=== PATIENT | male | born 2000 | race Two or more races ===

== ENCOUNTER 2020-10-19 22:49 | Emergency (ER) | payer SELFPAY ==
[~2020-10-19] VITALS: Ht 167.6 cm; Wt 75.0 kg
[2020-10-19] MEDS ORDERED: ONDANSETRON HCL 4MG/2ML INJ IV STA (22:52)
[2020-10-19] MEDS ORDERED: MORPHINE SULFATE 4 MG/ML CPJ (NOT FOR IM USE) IV STA (22:52)
[2020-10-19] MEDS ORDERED: TETANUS, DIPHTHERIA, PERTUSSIS VAC/PF 0.5ML (>7YR OLD) IM ONE (23:00)
[2020-10-19] MEDS ORDERED: CEFAZOLIN 1000MG PREMIX 50 ML IV ONE (23:00)
[2020-10-19] MEDS ORDERED: IOHEXOL 350 MG/ML 200ML INFUS..BTL IV ONE (23:17)
[2020-10-19 23:30] LABS: CHLORIDE 105 mEq/L (98-107)
[2020-10-19 23:38] LABS: PARTIAL THROMBOPLASTIN TIME 27.1 sec (23.4-31.0); PROTHROMBIN TIME 10.3 sec (9.6-11.0)
[2020-10-19 23:56] LABS: BASOPHILS % 0.6 % (0.0-2.0); EOSINOPHILS % 0.3 % (0.0-5.0); HEMATOCRIT. 45.7 % (42.0-52.0); HEMOGLOBIN. 16.3 g/dL (14.0-18.0); LYMPHOCYTES % 30.7 % (20.0-50.0); MEAN CORPUSCULAR HEMOGLOBIN 30.5 pg (28.0-32.0); MEAN CORPUSCULAR VOLUME 85.4 fL (80.0-94.0); MEAN PLATELET VOLUME 6.6 fl (7.4-10.4); MONOCYTES % 5.7 % (2.0-8.0); NEUTROPHILS % 62.7 % (40.0-76.0); PLATELET 386 x1000/uL (130-400); RED BLOOD CELL COUNT 5.35 mill/uL (4.7-6.1); RED CELL DISTRIBUTION WIDTH 14.2 % (11.6-14.6)
[2020-10-19] MEDS ORDERED: IOHEXOL-350 100 ML BOTTLE ONE (23:58)
[2020-10-20] MEDS ORDERED: POTASSIUM CHLORIDE 20MEQ TABLET SR PO NR
[2020-10-20 00:29] LABS: CLARITY URINE CLEAR (CLEAR); COLOR URINE YELLOW (YELLOW); KETONES URINE TRACE (NEGATIVE); LEUKOCYTE ESTERASE URINE NEGATIVE (NEGATIVE); NITRITE URINE NEGATIVE (NEGATIVE); OCCULT BLOOD URINE 1+ (NEGATIVE); PH URINE 5.5 (4.5-8.0); PROTEIN URINE NEGATIVE (NEGATIVE); SPECIFIC GRAVITY URINE 1.028 (1.005-1.030); UROBILINOGEN URINE 0.2 E.U./dL (0.2-1.0)
[2020-10-20] MEDS ORDERED: IBUP-2029 MT (00:49)
[2020-10-20 00:52] VITALS: BP 126/78
== END 2020-10-20 01:03 | disposition home or self-care (01) ==
LOC: ER 22:49
DX: S81.832A Puncture wound without foreign body, left lower leg, initial encounter (principal); R00.0 Tachycardia, unspecified; W34.09XA Accidental discharge from other specified firearms, initial encounter; Y93.89 Activity, other specified; Y92.89 Other specified places as the place of occurrence of the external cause; Y99.8 Other external cause status; F14.10 Cocaine abuse, uncomplicated; F12.10 Cannabis abuse, uncomplicated
CPT/HCPCS: 36415; 71045; 72170; 73552; 73706; 80053; 81003; 83690; 85025; 85610; 85730; 86850; 86900; 86901; 90471; 90715; 93005; 96365; 96375; 99285; J0690; J2270; J2405; Q9967; Z7610